=== PATIENT | female | born 1975 | race Caucasian/White ===

== ENCOUNTER 2017-03-31 06:03 | Inpatient (IN) | payer BC ==
[~2017-03-31] VITALS: Ht 162.6 cm; Wt 75.0 kg
[2017-03-31] MEDS ORDERED: VITAFOL-OB+DHA1 EACH PO (06:50)
[2017-03-31] MEDS ORDERED: iron (06:52)
--- NOTE | 2017-04-02 08:45 | PR ---
[facility] [address] [facility] [facility] [place], [place] [address] Signed PP Progress Notes Datetime Report Generated by CPN: 04/02/2017 08:45 SUBJECTIVE: [id number] Pain: Within normal limits Vital Signs: [id number] Vital Signs: Reviewed; Within Normal Limits EXAM: [id number] Cardiovascular: Not Done Respiratory: Not Done Abdomen/Uterus: Abnormal Lochia: Normal Vulva/Perineum: Not Done Breasts: Not Done CVA Tenderness: Not Done Extremities: Normal Incision: Not Applicable Progress: Abnormal Exam Comments: Fundus firm, NT @ U-1. IMPRESSION/PLAN/PROCEDURES: [id number] Impression: Normal progression Plan: Discharge Procedures: None Progress Notes: Doing well though she is having some difficulty with breast feeding. Signing Physician: Chapis Alba MD CC: *Electronically Signed* 04/02/17 0845 CHAPIS ALBA MD PATIENT NAME: JESSICA KYLE JANUARY PROGRESS NOTE DATE OF : 71 PHYSICIAN: CHAPIS ALBA MD RPT #: [id number] REPORT IS CONFIDENTIAL AND NOT TO BE RELEASED WITHOUT AUTHORIZATION
== END 2017-04-02 13:05 | disposition home or self-care (01) | DRG 775 ==
LOC: FBC 06:03
PROVIDERS: ADMIT Obstetrics & Gynecology
PROC: 10907ZC Drainage of Amniotic Fluid, Therapeutic from Products of Conception, Via Natural or Artificial Opening (ICD-10-PCS; principal; 2017-03-31)
PROC: 10E0XZZ Delivery of Products of Conception, External Approach (ICD-10-PCS; 2017-03-31)
PROC: 0KQM0ZZ Repair Perineum Muscle, Open Approach (ICD-10-PCS; 2017-03-31)
DX: O70.1 Second degree perineal laceration during delivery (principal); Z37.0 Single live birth; O69.81X0 Labor and delivery complicated by cord around neck, without compression, not applicable or unspecified; Z3A.39 39 weeks gestation of pregnancy
CPT/HCPCS: 85027; J2590; J7120